=== PATIENT | male | born 1980 | race Caucasian/White ===

== ENCOUNTER 2017-05-23 13:44 | Inpatient (IN) | payer OTHER ==
[~2017-05-23] VITALS: Ht 167.6 cm; Wt 85.7 kg
[~2017-05-23 13:44] MED LIST: CHLO10CA6 PO; FOLI-17 PO; LIBRIUM PO; THIA100T6 PO
[2017-05-23] MEDS ORDERED: SODIUM CHLORIDE 0.9% 1,000 ML IV ONE (13:48)
[2017-05-23] MEDS ORDERED: THIAMINE 100 MG/ML, 2ML ONE (13:54)
[2017-05-23] MEDS ORDERED: LORazepam 2 MG/ML, 1ML ONE (13:55)
[2017-05-23] MEDS ORDERED: ONDANSETRON 2MG/ML, 2ML ONE (13:55)
[2017-05-23] MEDS ORDERED: ONDANSETRON 2MG/ML, 2ML IVPush ONE (14:00)
[2017-05-23] MEDS ORDERED: SODIUM CHLORIDE FLUSH 10ML SYR IVF ONE (14:00)
[2017-05-23] MEDS ORDERED: LORazepam 2 MG/ML, 1ML IVPush PRN (14:00)
[2017-05-23] MEDS ORDERED: SODIUM CHLORIDE 0.9% 1,000ML IVBOLUS ONE (14:00)
[2017-05-23] MEDS ORDERED: THIAMINE 100 MG in SODIUM CHLORIDE 0.9% 50 ML IVPB ONE (14:00)
[2017-05-23 14:18] LABS: INTERNATIONAL NORMALIZED RATIO 1.2 (0.93-1.1); PROTHROMBIN TIME 12.4 Seconds (9.6-11.5)
[2017-05-23 14:21] LABS: ALANINE AMINOTRANSFERASE 77 U/L (12-78); ALBUMIN 3.1 g/dL (3.4-5.0); ANION GAP 13 mmol/L (5-15); CALCIUM 8.6 mg/dL (8.5-10.1); CHLORIDE 101 mmol/L (98-107); CREATININE 0.84 mg/dL (0.7-1.3)
[2017-05-23 14:23] LABS: ALKALINE PHOSPHATASE 144 U/L (45-117); TOTAL PROTEIN 9.2 g/dL (6.4-8.2)
[2017-05-23 14:59] LABS: MD YES; MEAN CORPUSCULAR HEMOGLOBIN 36.5 pg (27.5-34.5); MEAN CORPUSCULAR HGB CONC 34.6 g/dL (33.2-36.2); MEAN CORPUSCULAR VOLUME 105.5 fL (81-97); MEAN PLATELET VOLUME 8.6 fL (7.4-10.4); PLATELET COUNT 75 x10^3/uL (130-400); RED BLOOD COUNT 4.07 x10^6/uL (4.38-5.82); RED CELL DISTRIBUTION WIDTH 13.5 % (9.4-14.8)
[2017-05-23 15:03] LABS: BAND#(MANUAL) 0.17 x10^3/uL; BANDS%(MANUAL) 3 % (0-7); LYMPH#(MANUAL) 0.46 x10^3/uL (1-3.4); LYMPHS% (MANUAL) 8 % (22-44); MONOS#(MANUAL) 0.87 x10^3/uL (0.3-2.7); MONOS% (MANUAL) 15 % (2-9); SEG#(MANUAL) 4.29 x10^3/uL (1.8-6.8); SEGS% (MANUAL) 74 % (42-75)
[2017-05-23 15:04] LABS: <PLATELET ESTIMATE> DECREASED
[2017-05-23 15:05] LABS: SMALL PLATELETS 1+
[2017-05-23] MEDS ORDERED: SODIUM CHLORIDE FLUSH 10ML SYR IVF PRN (17:00)
[2017-05-23] MEDS ORDERED: THIAMINE 100MG TABLET PO ONE (18:30)
[2017-05-23] MEDS ORDERED: LORazepam 1MG TABLET PO PRN (18:30)
[2017-05-23] MEDS ORDERED: LORazepam 0.5MG TABLET PO PRN (18:30)
[2017-05-23] MEDS ORDERED: ENALAPRILAT 1.25 MG/ML, 2ML IVPush PRN (18:30)
[2017-05-23] MEDS ORDERED: FOLIC ACID 1 MG TABLET PO ONE (18:30)
[2017-05-23] MEDS ORDERED: CHLORDIAZEPOXIDE 25 MG CAPSULE PO ONE (18:30)
[2017-05-23] MEDS ORDERED: LORazepam 2 MG/ML, 1ML IV PRN (18:30)
[2017-05-23 18:42] VITALS: BP 147/76
[2017-05-23] MEDS: MULTIVITAMIN 1 TABLET PO SCH (20:14)
[2017-05-23] MEDS: ENOXAPARIN 40 MG/0.4 ML SQ SCH ×2 (20:14→21:44)
[2017-05-23] MEDS: MAGNESIUM OXIDE 400 MG TABLET PO SCH (20:14)
[2017-05-23] MEDS: POTASSIUM CHLORIDE 20 MEQ PACKET PO SCH (20:14)
[2017-05-23] MEDS: SODIUM CHLORIDE 0.9% 1,000 ML IV SCH (20:15)
[2017-05-24 04:14] VITALS: BP 146/67
[2017-05-24] MEDS: SODIUM CHLORIDE 0.9% 1,000 ML IV SCH ×3 (05:12→23:28)
[2017-05-24 05:31] LABS: MEAN CORPUSCULAR HEMOGLOBIN 36.8 pg (27.5-34.5); MEAN CORPUSCULAR HGB CONC 34.7 g/dL (33.2-36.2); MEAN CORPUSCULAR VOLUME 105.8 fL (81-97); RED CELL DISTRIBUTION WIDTH 13.9 % (9.4-14.8)
[2017-05-24 05:34] LABS: ALANINE AMINOTRANSFERASE 74 U/L (12-78); ALBUMIN 2.8 g/dL (3.4-5.0); ANION GAP 9 mmol/L (5-15); CALCIUM 7.8 mg/dL (8.5-10.1); CHLORIDE 106 mmol/L (98-107); CREATININE 0.56 mg/dL (0.7-1.3)
[2017-05-24 05:36] LABS: ALKALINE PHOSPHATASE 123 U/L (45-117); BILIRUBIN,TOTAL 3.2 mg/dL (0.2-1.0)
[2017-05-24 05:55] LABS: BASOPHILS # (AUTO) 0.05 x10^3/uL (0-0.1); BASOPHILS % (AUTO) 1 % (0-1); EOSINOPHILS # (AUTO) 0.15 x10^3/uL (0-0.4); EOSINOPHILS % (AUTO) 3 % (1-7); LYMPHOCYTES # (AUTO) 1.02 x10^3/uL (1-3.4); LYMPHOCYTES % (AUTO) 17 % (22-44); MD SCAN; MEAN PLATELET VOLUME 8.5 fL (7.4-10.4); MONOCYTES # (AUTO) 0.93 x10^3/uL (0.2-0.8); MONOCYTES % (AUTO) 16 % (2-9); NEUTROPHILS # (AUTO) 3.81 x10^3/uL (1.8-6.8); NEUTROPHILS % (AUTO) 64 % (42-75); PLATELET COUNT 63 x10^3/uL (130-400)
[2017-05-24 08:39] LABS: CULTURE INDICATED? YES; MICROSCOPIC INDICATED
[2017-05-24] MEDS: POTASSIUM CHLORIDE 20 MEQ PACKET PO SCH (09:09)
[2017-05-24] MEDS: MULTIVITAMIN 1 TABLET PO SCH (09:09)
[2017-05-24] MEDS: MAGNESIUM OXIDE 400 MG TABLET PO SCH (09:09)
[2017-05-24] MEDS: CHLORDIAZEPOXIDE 25 MG CAPSULE PO SCH ×4 (09:09→22:16)
[2017-05-24 09:13] VITALS: BP 144/78
[2017-05-24] MEDS: CEFTRIAXONE PMX 2GM/50ML 50 ML IV SCH (12:44)
[2017-05-24] MEDS: FOLIC ACID 1 MG TABLET PO SCH (14:21)
[2017-05-24] MEDS: THIAMINE 100MG TABLET PO SCH (14:21)
[2017-05-24 14:48] VITALS: BP 143/76
[2017-05-24 19:37] VITALS: BP 133/77
[2017-05-24] MEDS: ENOXAPARIN 40 MG/0.4 ML SQ SCH (22:15)
[2017-05-24] MEDS: D5%-0.9% NACL+KCL 20MEQ 1,000 ML IV SCH (23:00)
[2017-05-25 01:14] VITALS: BP 151/90
[2017-05-25] MEDS: LORazepam 2 MG/ML, 1ML IVPush PRN ×6 (02:09→07:32)
[2017-05-25 05:12] LABS: ANION GAP 10 mmol/L (5-15); CALCIUM 9.3 mg/dL (8.5-10.1); CHLORIDE 107 mmol/L (98-107); MEAN CORPUSCULAR HEMOGLOBIN 36.2 pg (27.5-34.5); MEAN CORPUSCULAR HGB CONC 34.4 g/dL (33.2-36.2); MEAN CORPUSCULAR VOLUME 105.3 fL (81-97); MEAN PLATELET VOLUME 8.8 fL (7.4-10.4); PLATELET COUNT 76 x10^3/uL (130-400); RED BLOOD COUNT 4.12 x10^6/uL (4.38-5.82)
[2017-05-25 05:14] LABS: CREATININE 0.75 mg/dL (0.7-1.3)
[2017-05-25] MEDS ORDERED: METOPROLOL 1 MG/ML, 5ML IVPush PRN (05:30)
[2017-05-25 06:26] LABS: BASOPHILS # (AUTO) 0.03 x10^3/uL (0-0.1); BASOPHILS % (AUTO) 0 % (0-1); EOSINOPHILS % (AUTO) 1 % (1-7); LYMPHOCYTES # (AUTO) 1.35 x10^3/uL (1-3.4); LYMPHOCYTES % (AUTO) 20 % (22-44); MD SCAN; MONOCYTES # (AUTO) 1.07 x10^3/uL (0.2-0.8); MONOCYTES % (AUTO) 16 % (2-9); NEUTROPHILS # (AUTO) 4.29 x10^3/uL (1.8-6.8); NEUTROPHILS % (AUTO) 63 % (42-75)
[2017-05-25 07:41] LABS: AMPHETAMINE SCREEN, URINE Negative (Negative); BARBITURATE SCREEN, URINE Negative (Negative); BENZODIAZEPINE SCREEN, URINE Positive (Negative); CANNABINOID SCREEN, URINE Negative (Negative); COCAINE SCREEN, URINE Negative (Negative); METHADONE SCREEN, URINE Negative (Negative); OPIATE SCREEN, URINE Negative (Negative)
[2017-05-25] MEDS ORDERED: HALOPERIDOL 5 MG/ML IV ONE ×2 (08:00→12:00)
[2017-05-25 08:24] VITALS: BP 164/85
[2017-05-25] MEDS: SODIUM CHLORIDE 0.9% 1,000 ML IV SCH (08:47)
[2017-05-25] MEDS ORDERED: CHLORDIAZEPOXIDE 25 MG CAPSULE PO SCH ×2 (09:00→10:30)
[2017-05-25] MEDS ORDERED: LORazepam 1MG TABLET PO PRN ×4 (10:00)
[2017-05-25] MEDS ORDERED: LORazepam 2 MG/ML, 1ML IV PRN ×4 (10:00)
[2017-05-25] MEDS ORDERED: LORazepam 0.5MG TABLET PO PRN (10:00)
[2017-05-25] MEDS ORDERED: CHLORDIAZEPOXIDE 25 MG CAPSULE PO PRN (10:00)
[2017-05-25] MEDS: THIAMINE 100MG TABLET PO SCH (11:43)
[2017-05-25] MEDS: CHLORDIAZEPOXIDE 25 MG CAPSULE PO SCH ×3 (11:43→23:04)
[2017-05-25] MEDS: MULTIVITAMIN 1 TABLET PO SCH (11:43)
[2017-05-25] MEDS: MAGNESIUM OXIDE 400 MG TABLET PO SCH (11:43)
[2017-05-25] MEDS: POTASSIUM CHLORIDE 20 MEQ PACKET PO SCH (11:44)
[2017-05-25] MEDS: FOLIC ACID 1 MG TABLET PO SCH (11:44)
[2017-05-25] MEDS ORDERED: ERGOCALCIFEROL 50,000 UNIT CAPSULE PO SCH (12:00)
[2017-05-25] MEDS: D5%-0.9% NACL+KCL 20MEQ 1,000 ML IV SCH ×2 (12:53→23:00)
[2017-05-25] MEDS: CEFTRIAXONE PMX 2GM/50ML 50 ML IV SCH (12:53)
[2017-05-25 14:34] VITALS: BP 135/78
[2017-05-25] MEDS: LORazepam 2 MG/ML, 1ML IV PRN ×2 (18:24→19:59)
[2017-05-26 05:21] LABS: CHLORIDE 108 mmol/L (98-107)
[2017-05-26 05:22] LABS: MEAN CORPUSCULAR HEMOGLOBIN 36.4 pg (27.5-34.5); MEAN CORPUSCULAR HGB CONC 34.1 g/dL (33.2-36.2); MEAN PLATELET VOLUME 8.6 fL (7.4-10.4); PLATELET COUNT 80 x10^3/uL (130-400); RED BLOOD COUNT 3.76 x10^6/uL (4.38-5.82); RED CELL DISTRIBUTION WIDTH 14.1 % (9.4-14.8)
[2017-05-26 05:32] LABS: ALANINE AMINOTRANSFERASE 80 U/L (12-78); ALBUMIN 2.8 g/dL (3.4-5.0); ALKALINE PHOSPHATASE 116 U/L (45-117); ANION GAP 7 mmol/L (5-15); CALCIUM 8.1 mg/dL (8.5-10.1); CREATININE 0.63 mg/dL (0.7-1.3); TOTAL PROTEIN 7.9 g/dL (6.4-8.2)
[2017-05-26 06:27] LABS: BASOPHILS # (AUTO) 0.07 x10^3/uL (0-0.1); BASOPHILS % (AUTO) 1 % (0-1); EOSINOPHILS # (AUTO) 0.29 x10^3/uL (0-0.4); EOSINOPHILS % (AUTO) 5 % (1-7); LYMPHOCYTES # (AUTO) 1.14 x10^3/uL (1-3.4); LYMPHOCYTES % (AUTO) 22 % (22-44); MD SCAN; MONOCYTES % (AUTO) 17 % (2-9); NEUTROPHILS # (AUTO) 2.89 x10^3/uL (1.8-6.8); NEUTROPHILS % (AUTO) 55 % (42-75)
[2017-05-26 06:45] VITALS: BP 131/78
[2017-05-26] MEDS: D5%-0.9% NACL+KCL 20MEQ 1,000 ML IV SCH (08:00)
[2017-05-26] MEDS: FOLIC ACID 1 MG TABLET PO SCH (10:36)
[2017-05-26] MEDS: THIAMINE 100MG TABLET PO SCH (10:36)
[2017-05-26] MEDS: POTASSIUM CHLORIDE 20 MEQ PACKET PO SCH (10:36)
[2017-05-26] MEDS: CHLORDIAZEPOXIDE 25 MG CAPSULE PO SCH ×3 (10:36→21:52)
[2017-05-26] MEDS: MULTIVITAMIN 1 TABLET PO SCH (10:36)
[2017-05-26] MEDS: MAGNESIUM OXIDE 400 MG TABLET PO SCH (10:36)
[2017-05-26 12:15] VITALS: BP 131/78
[2017-05-26] MEDS: CEFTRIAXONE PMX 2GM/50ML 50 ML IV SCH (12:52)
[2017-05-26] MEDS: LACTULOSE 20 GM/30 ML UDC PO SCH (15:05)
[2017-05-26 19:57] VITALS: BP 119/69
[2017-05-27 02:54] VITALS: BP 114/72
[2017-05-27 07:42] VITALS: BP 120/70
[2017-05-27] MEDS: THIAMINE 100MG TABLET PO SCH (10:09)
[2017-05-27] MEDS: MULTIVITAMIN 1 TABLET PO SCH (10:09)
[2017-05-27] MEDS: CHLORDIAZEPOXIDE 25 MG CAPSULE PO SCH ×3 (10:09→19:56)
[2017-05-27] MEDS: MAGNESIUM OXIDE 400 MG TABLET PO SCH (10:09)
[2017-05-27] MEDS: FOLIC ACID 1 MG TABLET PO SCH (10:09)
[2017-05-27] MEDS: LACTULOSE 20 GM/30 ML UDC PO SCH (10:10)
[2017-05-27] MEDS: POTASSIUM CHLORIDE 20 MEQ PACKET PO SCH (10:10)
[2017-05-27] MEDS: CEFTRIAXONE PMX 2GM/50ML 50 ML IV SCH (12:55)
[2017-05-27 14:03] VITALS: BP 125/75
[2017-05-27 19:12] VITALS: BP 115/69
[2017-05-28 02:41] VITALS: BP 119/67
[2017-05-28 05:51] LABS: INTERNATIONAL NORMALIZED RATIO 1.22 (0.93-1.1); PROTHROMBIN TIME 12.6 Seconds (9.6-11.5)
[2017-05-28 05:59] LABS: CHLORIDE 107 mmol/L (98-107)
[2017-05-28 06:19] LABS: ALANINE AMINOTRANSFERASE 98 U/L (12-78); ALKALINE PHOSPHATASE 127 U/L (45-117); ANION GAP 6 mmol/L (5-15); BILIRUBIN,TOTAL 1.8 mg/dL (0.2-1.0); CALCIUM 8.8 mg/dL (8.5-10.1); CREATININE 0.71 mg/dL (0.7-1.3); TOTAL PROTEIN 8.7 g/dL (6.4-8.2)
[2017-05-28 06:52] VITALS: BP 103/65
[2017-05-28] MEDS: LACTULOSE 20 GM/30 ML UDC PO SCH (09:26)
[2017-05-28] MEDS: CHLORDIAZEPOXIDE 25 MG CAPSULE PO SCH (09:26)
[2017-05-28] MEDS: POTASSIUM CHLORIDE 20 MEQ PACKET PO SCH (09:26)
[2017-05-28] MEDS: FOLIC ACID 1 MG TABLET PO SCH (09:26)
[2017-05-28] MEDS: MAGNESIUM OXIDE 400 MG TABLET PO SCH (09:26)
[2017-05-28] MEDS: THIAMINE 100MG TABLET PO SCH (09:27)
[2017-05-28] MEDS: MULTIVITAMIN 1 TABLET PO SCH (09:27)
[2017-05-28 13:19] VITALS: BP 133/77
[2017-05-28] MEDS ORDERED: THIA100T6 PO (16:00)
[2017-05-28] MEDS ORDERED: GABA100C PO (16:00)
[2017-05-28] MEDS ORDERED: FOLI-17 PO (16:00)
[2017-05-28] MEDS ORDERED: MULT1TAB60 PO (16:00)
[2017-05-28] MEDS ORDERED: ERGO500017 PO (16:00)
[2017-05-28] MEDS ORDERED: CHLORDIAZEPOXIDE 25 MG CAPSULE PO SCH (16:00)
== END 2017-05-28 18:14 | disposition home or self-care (01) | DRG 432 ==
LOC: ED 16:30 → EDIP 16:31 → ED 17:54 → 4EST 18:16
PROVIDERS: ADMIT Family Medicine; ATTEND Family Medicine
DX: K70.10 Alcoholic hepatitis without ascites (principal); G93.41 Metabolic encephalopathy; K70.30 Alcoholic cirrhosis of liver without ascites; D69.59 Other secondary thrombocytopenia; R56.9 Unspecified convulsions; E44.1 Mild protein-calorie malnutrition; E88.09 Other disorders of plasma-protein metabolism, not elsewhere classified; E87.1 Hypo-osmolality and hyponatremia; F10.239 Alcohol dependence with withdrawal, unspecified; E55.9 Vitamin D deficiency, unspecified; R73.9 Hyperglycemia, unspecified; F19.10 Other psychoactive substance abuse, uncomplicated; K76.0 Fatty (change of) liver, not elsewhere classified; R74.8 Abnormal levels of other serum enzymes; Z68.30 Body mass index [BMI] 30.0-30.9, adult
CPT/HCPCS: 36415; 70450; 71045; 76700; 80048; 80053; 80307; 81001; 82140; 83690; 83735; 84100; 85025; 85610; 85730; 87086; 93005; 96374; J0696; J1650; J2405; J3411; G0479; J1630; J2060; J3480; J7030